=== PATIENT | female | born 1955 | race African-American/Black ===

== ENCOUNTER 2016-10-10 17:41 | Emergency (ER) | payer MEDICARE, MEDICAID ==
[~2016-10-10] VITALS: Ht 139.7 cm; Wt 69.0 kg
[~2016-10-10 17:41] MED LIST: CHOL500011; DULO30CA2; INSU100C6; LEVPEN; LISI40TA4; OMEP20TA80; PENT400T2; PROP40TA7; ROSU10TA; SITA100T6
[2016-10-10] MEDS ORDERED: KETOROLAC 60MG/2ML VIAL IM ONE (19:15)
[2016-10-10 21:00] VITALS: BP 126/69
== END 2016-10-10 22:30 | disposition home or self-care (01) ==
LOC: ER 19:00
DX: M25.571 Pain in right ankle and joints of right foot (principal); M79.671 Pain in right foot; I10 Essential (primary) hypertension; E11.9 Type 2 diabetes mellitus without complications; Z79.4 Long term (current) use of insulin
CPT/HCPCS: 73610; 73630; 96372; 99284; J1885

== ENCOUNTER 2018-10-02 09:42 | Emergency (ER) | payer MEDICARE, MEDICAID ==
[~2018-10-02] VITALS: Ht 139.7 cm; Wt 77.0 kg
[~2018-10-02 09:42] MED LIST changes: +CRES10; +OMEP20TA2; -OMEP20TA80; +PENT400T16; -PENT400T2; -ROSU10TA; +SITA100T11; -SITA100T6
[2018-10-02] MEDS: KETOROLAC 60MG/2ML VIAL IM ONE (10:13)
[2018-10-02 12:15] VITALS: BP 148/69
== END 2018-10-02 12:26 | disposition home or self-care (01) ==
LOC: ER 09:42
DX: S70.01XA Contusion of right hip, initial encounter (principal); E11.9 Type 2 diabetes mellitus without complications; I10 Essential (primary) hypertension; E03.9 Hypothyroidism, unspecified; Z98.890 Other specified postprocedural states; Z96.649 Presence of unspecified artificial hip joint; W19.XXXA Unspecified fall, initial encounter; Y93.89 Activity, other specified; Y92.89 Other specified places as the place of occurrence of the external cause; Y99.8 Other external cause status
CPT/HCPCS: 73502; 93971; 96372; 99284; J1885

== ENCOUNTER 2019-04-20 09:35 | Inpatient (IN) | payer MEDICARE, MEDICAID ==
[~2019-04-20] VITALS: Ht 154.9 cm; Wt 78.0 kg
[2019-04-20] MEDS ORDERED: SODIUM CHLORIDE 0.9% 1000ML BAG (SEPSIS BOLUS) IV ONE (10:00)
[2019-04-20] MEDS ORDERED: ACETAMINOPHEN 325MG TABLET PO STA (10:00)
[2019-04-20 10:18] LABS: BASOPHILS % 0.9 % (0.0-2.0); EOSINOPHILS % 1.7 % (0.0-5.0); HEMATOCRIT. 37.6 % (36.0-48.0); HEMOGLOBIN. 12.8 g/dL (12.0-16.0); LYMPHOCYTES % 35.6 % (20.0-50.0); MEAN CORPUSCULAR VOLUME 85.5 fL (81.0-99.0); MONOCYTES % 9.6 % (2.0-8.0); NEUTROPHILS % 52.2 % (40.0-76.0); PLATELET 335 x1000/uL (130-400); RED CELL DISTRIBUTION WIDTH 13.5 % (11.6-14.6)
[2019-04-20 10:30] LABS: CHLORIDE 102 mEq/L (98-107)
[2019-04-20 10:32] LABS: INR 0.9; PROTHROMBIN TIME 9.5 sec (9.6-11.0)
[2019-04-20] MEDS ORDERED: INSULIN REGULAR (HUMULIN R) 300UNITS/3ML IV ONE (10:45)
[2019-04-20] MEDS ORDERED: VANCOMYCIN 1 G PREMIX 200 ML IV ONE (10:45)
[2019-04-20] MEDS ORDERED: PIPERACILLIN/TAZ 3.375G PREMIX 50 ML IV ONE (10:45)
[2019-04-20] MEDS ORDERED: HYDRALAZINE 20MG/ML VIAL IV ONE (12:00)
[2019-04-20 12:20] LABS: CLARITY URINE CLEAR (CLEAR); COLOR URINE YELLOW (YELLOW); KETONES URINE NEGATIVE (NEGATIVE); LEUKOCYTE ESTERASE URINE NEGATIVE (NEGATIVE); NITRITE URINE NEGATIVE (NEGATIVE); OCCULT BLOOD URINE NEGATIVE (NEGATIVE); PROTEIN URINE NEGATIVE (NEGATIVE); SPECIFIC GRAVITY URINE 1.029 (1.005-1.030); UROBILINOGEN URINE 0.2 E.U./dL (0.2-1.0)
[2019-04-20] MEDS ORDERED: HYDROCODONE/ACETAMINOPHEN 5/325MG TABLET PO PRN (12:45)
[2019-04-20] MEDS ORDERED: IPRATROPIUM/ALBUTEROL 0.5-3(2.5)MG/3ML NEB HHN PRN (12:45)
[2019-04-20] MEDS ORDERED: DIPHENHYDRAMINE 50MG/ML VIAL IV PRN (12:45)
[2019-04-20] MEDS ORDERED: LORAZEPAM 2MG/ML CPJ IV NR (14:15)
[2019-04-20 16:40] LABS: FOLIC ACID (FOLATE) SERUM 17.3 ng/mL (>5.38)
[2019-04-20] MEDS: CLOPIDOGREL 75MG TABLET PO SCH (17:23)
[2019-04-20] MEDS: FLUCONAZOLE 100MG TABLET PO SCH (17:23)
[2019-04-20 20:05] VITALS: BP 154/78
[2019-04-20 22:00] VITALS: BP 115/73
[2019-04-20] MEDS ORDERED: DEXTROSE 50% WATER 50ML SYRINGE IV PRN (23:00)
[2019-04-20] MEDS ORDERED: INSULIN LISPRO 100 UNITS/ML SUBCUT SCH (23:00)
[2019-04-20] MEDS: ENOXAPARIN 40MG/0.4ML SYR SUBCUT SCH (23:16)
[2019-04-20] MEDS: BLOOD SUGAR DIAGNOSTIC STRIP TEST SCH (23:17)
[2019-04-20] MEDS: ACETAMINOPHEN 325MG TABLET PO PRN (23:19)
[2019-04-21] VITALS (11 sets, daily range): BP systolic 110–190; BP diastolic 20–115
[2019-04-21] MEDS ORDERED: INSULIN GLARGINE UD 100 UNITS/ML SYR SUBCUT NR (00:30)
[2019-04-21 07:04] LABS: CHLORIDE 107 mEq/L (98-107)
[2019-04-21] MEDS ORDERED: IOHEXOL-350 100 ML BOTTLE ONE (07:15)
[2019-04-21 07:36] LABS: LDL CHOLESTEROL 130 mg/dL (5-100)
[2019-04-21 07:38] LABS: HDL CHOLESTEROL 51 mg/dL (40-59)
[2019-04-21 07:47] LABS: BASOPHILS % 0.6 % (0.0-2.0); EOSINOPHILS % 2.8 % (0.0-5.0); HEMATOCRIT. 32.9 % (36.0-48.0); HEMOGLOBIN. 11.2 g/dL (12.0-16.0); LYMPHOCYTES % 43.8 % (20.0-50.0); MEAN CORPUSCULAR HEMOGLOBIN 29.1 pg (28.0-32.0); MEAN CORPUSCULAR VOLUME 85.3 fL (81.0-99.0); MEAN PLATELET VOLUME 8.2 fl (7.4-10.4); MONOCYTES % 10.1 % (2.0-8.0); NEUTROPHILS % 42.7 % (40.0-76.0); PLATELET 307 x1000/uL (130-400); RED BLOOD CELL COUNT 3.85 mill/uL (4.2-5.4); RED CELL DISTRIBUTION WIDTH 13.4 % (11.6-14.6)
[2019-04-21] MEDS: BLOOD SUGAR DIAGNOSTIC STRIP TEST SCH ×4 (07:53→20:56)
[2019-04-21] MEDS: ACETAMINOPHEN 325MG TABLET PO PRN (08:08)
[2019-04-21] MEDS: CLOPIDOGREL 75MG TABLET PO SCH (08:08)
[2019-04-21] MEDS: ASPIRIN 81MG EC TABLET PO SCH (08:09)
[2019-04-21] MEDS: FLUCONAZOLE 100MG TABLET PO SCH (08:09)
[2019-04-21] MEDS: INSULIN LISPRO 100 UNITS/ML SUBCUT SCH ×7 (08:10→20:55)
[2019-04-21 14:03] LABS: T4 FREE 1.54 ng/dL (0.76-1.46)
[2019-04-21] MEDS ORDERED: DULO30CA52 PO (16:26)
[2019-04-21] MEDS ORDERED: LISI40TA4 MT (16:28)
[2019-04-21] MEDS ORDERED: METH10TA7 PO (16:28)
[2019-04-21] MEDS ORDERED: GLIP5TAB12 MT (16:32)
[2019-04-21] MEDS ORDERED: CYCL5TAB PO (16:32)
[2019-04-21] MEDS ORDERED: ALBUL MT (16:35)
[2019-04-21] MEDS ORDERED: AMLO5TAB88 PO (16:35)
[2019-04-21 16:40] LABS: T4 FREE 1.39 ng/dL (0.76-1.46)
[2019-04-21] MEDS: CLONIDINE 0.1MG TABLET PO PRN (17:00)
[2019-04-21] MEDS: ENOXAPARIN 40MG/0.4ML SYR SUBCUT SCH (20:54)
[2019-04-21] MEDS: ATORVASTATIN CALCIUM 20MG TABLET PO SCH (20:55)
[2019-04-21] MEDS: INSULIN GLARGINE UD 100 UNITS/ML SYR SUBCUT SCH (22:22)
[2019-04-22] VITALS (13 sets, daily range): BP systolic 116–184; BP diastolic 59–116
[2019-04-22] MEDS: ONDANSETRON HCL 4MG/2ML INJ IV PRN ×2 (02:56→22:43)
[2019-04-22] MEDS: CLONIDINE 0.1MG TABLET PO PRN (03:08)
[2019-04-22] MEDS: BLOOD SUGAR DIAGNOSTIC STRIP TEST SCH ×4 (07:30→21:28)
[2019-04-22] MEDS: ACETAMINOPHEN 325MG TABLET PO PRN (08:32)
[2019-04-22] MEDS: ASPIRIN 81MG EC TABLET PO SCH (08:32)
[2019-04-22] MEDS: FLUCONAZOLE 100MG TABLET PO SCH (08:32)
[2019-04-22] MEDS: CLOPIDOGREL 75MG TABLET PO SCH (09:04)
[2019-04-22] MEDS: INSULIN LISPRO 100 UNITS/ML SUBCUT SCH ×7 (09:07→21:35)
[2019-04-22 11:00] LABS: *BENZODIAZEPINES SCREEN URINE NEGATIVE (NEGATIVE); *COCAINE SCREEN URINE NEGATIVE (NEGATIVE)
[2019-04-22 11:01] LABS: *AMPHETAMINES SCREEN URINE NEGATIVE (NEGATIVE); *BARBITURATES SCREEN URINE NEGATIVE (NEGATIVE); CANNABINOID URINE SCREEN NEGATIVE (NEGATIVE); METHADONE URINE SCREEN NEGATIVE (NEGATIVE); OPIATES URINE SCREEN NEGATIVE (NEGATIVE); PHENCYCLIDINE URINE SCREEN NEGATIVE (NEGATIVE)
[2019-04-22] MEDS: LISINOPRIL 40MG TABLET PO SCH (12:11)
[2019-04-22] MEDS ORDERED: ASPI-864 MT (13:34)
[2019-04-22] MEDS ORDERED: FLUC100T42 MT (13:34)
[2019-04-22] MEDS ORDERED: CLOP75TA4 MT (13:34)
[2019-04-22] MEDS: ENOXAPARIN 40MG/0.4ML SYR SUBCUT SCH (21:27)
[2019-04-22] MEDS: INSULIN GLARGINE UD 100 UNITS/ML SYR SUBCUT SCH (21:28)
[2019-04-22] MEDS: ATORVASTATIN CALCIUM 20MG TABLET PO SCH (21:28)
[2019-04-22] MEDS ORDERED: IOHEXOL-350 100 ML BOTTLE ONE (22:38)
[2019-04-23] VITALS: BP 155/76
[2019-04-23 06:00] VITALS: BP 131/72
[2019-04-23] MEDS: BLOOD SUGAR DIAGNOSTIC STRIP TEST SCH (07:59)
[2019-04-23 08:00] VITALS: BP 125/69
[2019-04-23] MEDS: ASPIRIN 81MG EC TABLET PO SCH (08:48)
[2019-04-23] MEDS: FLUCONAZOLE 100MG TABLET PO SCH (08:49)
[2019-04-23] MEDS: LISINOPRIL 40MG TABLET PO SCH (08:49)
[2019-04-23] MEDS: CLOPIDOGREL 75MG TABLET PO SCH (08:51)
[2019-04-23] MEDS: INSULIN LISPRO 100 UNITS/ML SUBCUT SCH ×2 (08:52→08:54)
[2019-04-23] MEDS ORDERED: AMLODIPINE 5MG TABLET PO SCH (09:00)
[2019-04-24 13:06] LABS: ANTI-THROMBIN ACTIVITY 121 % (75-135); DRVVT LA 38.9 sec (0.0-47.0); LUPUS ANTICOAG INTERPRETATION Comment: (.); PROTEIN C FUNCTIONAL 140 % (73-180); PTT-LA 32.3 sec (0.0-51.9)
[2019-04-25 10:06] LABS: ANTI-CARDIOLIPIN AB IGA < 9 APL U/mL (0-11); ANTI-CARDIOLIPIN AB IGG < 9 GPL U/mL (0-14); ANTI-CARDIOLIPIN AB IGM < 9 MPL U/mL (0-12)
== END 2019-04-23 11:05 | disposition home or self-care (01) | DRG 64 ==
LOC: ER 09:35 → 5EST 12:08 → EDBEDREQSVC 12:14 → EDBEDREQ 12:14 → EDBEDREQTM 12:14 → EDBEDREQSVC 16:47 → ENRESERV 18:39
PROVIDERS: ADMIT Internal Medicine; ATTEND Internal Medicine
DX: I63.9 Cerebral infarction, unspecified (principal); G82.50 Quadriplegia, unspecified; J98.11 Atelectasis; E87.2 Acidosis; R13.10 Dysphagia, unspecified; I16.0 Hypertensive urgency; E78.5 Hyperlipidemia, unspecified; E78.00 Pure hypercholesterolemia, unspecified; E11.42 Type 2 diabetes mellitus with diabetic polyneuropathy; E11.65 Type 2 diabetes mellitus with hyperglycemia; I10 Essential (primary) hypertension; E03.9 Hypothyroidism, unspecified; D64.9 Anemia, unspecified; R26.9 Unspecified abnormalities of gait and mobility; B37.9 Candidiasis, unspecified; F80.9 Developmental disorder of speech and language, unspecified; R29.810 Facial weakness; Z96.641 Presence of right artificial hip joint; M19.90 Unspecified osteoarthritis, unspecified site; Z79.4 Long term (current) use of insulin; Z79.899 Other long term (current) drug therapy
CPT/HCPCS: 36415; 70496; 70551; 71045; 71275; 80053; 80061; 80305; 80320; 81003; 81400; 81403; 81407; 81479; 82607; 82746; 82962; 83036; 83605; 84145; 84439; 84443; 84481; 84484; 85025; 85300; 85303; 85306; 85379; 85613; 85732; 86147; 87106; 92610; 93005; 93306; 93880; 93970; 97162; 99291; J0360; J1650; J1815; J2060; J2405; J2543; J3370; J7030; Q9967; G0480

== ENCOUNTER 2019-05-05 10:45 | Inpatient (IN) | payer MEDICARE, MEDICAID ==
[~2019-05-05] VITALS: Ht 157.5 cm; Wt 77.1 kg
[~2019-05-05 10:45] MED LIST changes: +ALBUL MT; +AMLO5TAB88 PO; +ASPI-864 MT; +CLOP75TA4 MT; +CYCL5TAB PO; +DULO30CA52 PO; +FLUC100T42 MT; +GLIP5TAB12 MT; +LISI40TA4 MT; +METH10TA7 PO
[2019-05-05 11:47] LABS: BASOPHILS % 0.7 % (0.0-2.0); HEMATOCRIT. 40.4 % (36.0-48.0); HEMOGLOBIN. 13.8 g/dL (12.0-16.0); LYMPHOCYTES % 12.9 % (20.0-50.0); MEAN CORPUSCULAR HEMOGLOBIN 29.6 pg (28.0-32.0); MEAN CORPUSCULAR VOLUME 86.4 fL (81.0-99.0); MEAN PLATELET VOLUME 8.6 fl (7.4-10.4); MONOCYTES % 1.6 % (2.0-8.0); NEUTROPHILS % 84.8 % (40.0-76.0); PLATELET 384 x1000/uL (130-400); RED BLOOD CELL COUNT 4.68 mill/uL (4.2-5.4); RED CELL DISTRIBUTION WIDTH 13.8 % (11.6-14.6)
[2019-05-05 11:53] LABS: CHLORIDE 98 mEq/L (98-107); INR 0.9; PROTHROMBIN TIME 9.9 sec (9.6-11.0)
[2019-05-05 11:58] LABS: ETHANOL BLOOD < 10 mg/dL
[2019-05-05 12:02] LABS: LDL CHOLESTEROL 175 mg/dL (5-100)
[2019-05-05 12:04] LABS: CREATINE KINASE 113 IU/L (26-192)
[2019-05-05] MEDS ORDERED: INSULIN REGULAR (HUMULIN R) 300UNITS/3ML IV ONE (12:15)
[2019-05-05] MEDS ORDERED: ACETAMINOPHEN 650MG SUPP PR STA (12:17)
[2019-05-05] MEDS ORDERED: SODIUM CHLORIDE 0.9% 1000ML BAG (SEPSIS BOLUS) IV ONE (12:30)
[2019-05-05] MEDS ORDERED: CEFTRIAXONE 1 G PREMIX 50 ML IV ONE (13:15)
[2019-05-05] MEDS ORDERED: LEVOFLOXACIN 500MG PREMIX 100 ML IV ONE (13:15)
[2019-05-05 13:56] LABS: CLARITY URINE CLEAR (CLEAR); COLOR URINE YELLOW (YELLOW); KETONES URINE 2+ (NEGATIVE); LEUKOCYTE ESTERASE URINE NEGATIVE (NEGATIVE); NITRITE URINE NEGATIVE (NEGATIVE); OCCULT BLOOD URINE TRACE (NEGATIVE); PH URINE 5.5 (4.5-8.0); PROTEIN URINE 1+ (NEGATIVE); SPECIFIC GRAVITY URINE 1.035 (1.005-1.030); UROBILINOGEN URINE 0.2 E.U./dL (0.2-1.0)
[2019-05-05] MEDS ORDERED: DEXTROSE 50% WATER 50ML SYRINGE IV PRN (14:00)
[2019-05-05] MEDS ORDERED: ACETAMINOPHEN 325MG TABLET PO PRN (14:00)
[2019-05-05] MEDS ORDERED: ONDANSETRON HCL 4MG/2ML INJ IV PRN (14:00)
[2019-05-05 14:29] LABS: *BARBITURATES SCREEN URINE NEGATIVE (NEGATIVE); *BENZODIAZEPINES SCREEN URINE NEGATIVE (NEGATIVE)
[2019-05-05 14:33] LABS: *AMPHETAMINES SCREEN URINE NEGATIVE (NEGATIVE); *COCAINE SCREEN URINE NEGATIVE (NEGATIVE); CANNABINOID URINE SCREEN NEGATIVE (NEGATIVE); METHADONE URINE SCREEN NEGATIVE (NEGATIVE); PHENCYCLIDINE URINE SCREEN NEGATIVE (NEGATIVE)
[2019-05-05 14:47] LABS: OPIATES URINE SCREEN NEGATIVE (NEGATIVE)
[2019-05-05 16:00] VITALS: BP 108/93
[2019-05-05] MEDS: ACETAMINOPHEN 650MG SUPP PR NR ×2 (16:45→17:40)
[2019-05-05] MEDS: SODIUM CHLORIDE 0.9% 1,000 ML IV SCH (17:39)
[2019-05-05] MEDS: ENOXAPARIN 40MG/0.4ML SYR SUBCUT SCH (17:41)
[2019-05-05] MEDS: CEFEPIME 1,000 MG in DEXTROSE 5% WATER 50 ML IV SCH (17:45)
[2019-05-05 18:00] VITALS: BP 125/104
[2019-05-05] MEDS ORDERED: ASPIRIN 300MG SUPP PR NR (18:00)
[2019-05-05] MEDS: BLOOD SUGAR DIAGNOSTIC STRIP TEST SCH ×2 (18:20→21:53)
[2019-05-05] MEDS: INSULIN LISPRO 100 UNITS/ML SUBCUT SCH ×2 (18:29→21:54)
[2019-05-05] MEDS: METRONIDAZOLE 500 MG PREMIX 100 ML IV SCH (19:09)
[2019-05-05] MEDS: ATORVASTATIN CALCIUM 40MG TABLET PO SCH (21:00)
[2019-05-05] MEDS: INSULIN GLARGINE UD 100 UNITS/ML SYR SUBCUT SCH (21:55)
[2019-05-05 22:00] VITALS: BP 137/73
[2019-05-06] VITALS (10 sets, daily range): BP systolic 108–155; BP diastolic 64–93
[2019-05-06] MEDS: METRONIDAZOLE 500 MG PREMIX 100 ML IV SCH ×3 (02:19→20:26)
[2019-05-06] MEDS: CEFEPIME 1,000 MG in DEXTROSE 5% WATER 50 ML IV SCH ×2 (05:24→21:48)
[2019-05-06 07:20] LABS: BASOPHILS % 1.1 % (0.0-2.0); HEMATOCRIT. 33.6 % (36.0-48.0); HEMOGLOBIN. 11.5 g/dL (12.0-16.0); LYMPHOCYTES % 28.9 % (20.0-50.0); MEAN CORPUSCULAR HEMOGLOBIN 29.5 pg (28.0-32.0); MEAN CORPUSCULAR VOLUME 85.9 fL (81.0-99.0); MEAN PLATELET VOLUME 8.7 fl (7.4-10.4); MONOCYTES % 13.9 % (2.0-8.0); NEUTROPHILS % 56.1 % (40.0-76.0); PLATELET 281 x1000/uL (130-400); RED BLOOD CELL COUNT 3.91 mill/uL (4.2-5.4); RED CELL DISTRIBUTION WIDTH 14.1 % (11.6-14.6)
[2019-05-06] MEDS: BLOOD SUGAR DIAGNOSTIC STRIP TEST SCH ×4 (07:30→21:00)
[2019-05-06 07:51] LABS: CHLORIDE 109 mEq/L (98-107)
[2019-05-06] MEDS ORDERED: LORAZEPAM 2MG/ML CPJ IV PRN (08:00)
[2019-05-06] MEDS ORDERED: HALOPERIDOL LACTATE 5MG/ML VIAL IM PRN (08:00)
[2019-05-06] MEDS: CLOPIDOGREL 75MG TABLET PO SCH ×2 (09:00→09:39)
[2019-05-06] MEDS: INSULIN LISPRO 100 UNITS/ML SUBCUT SCH ×4 (09:37→21:54)
[2019-05-06 09:59] LABS: HDL CHOLESTEROL 59 mg/dL (40-59); LDL CHOLESTEROL 128 mg/dL (5-100)
[2019-05-06 10:00] LABS: T4 FREE 1.97 ng/dL (0.76-1.46)
[2019-05-06 10:14] LABS: FOLIC ACID (FOLATE) SERUM >20 ng/mL ng/mL (>5.38)
[2019-05-06 10:24] LABS: VITAMIN B12 SERUM >2000 pg/mL pg/mL (211-911)
[2019-05-06] MEDS: INSULIN GLARGINE UD 100 UNITS/ML SYR SUBCUT SCH ×2 (10:57→21:54)
[2019-05-06] MEDS ORDERED: LACTATED RINGERS 1,000 ML IV ONE (12:00)
[2019-05-06] MEDS: OMEPRAZOLE 20MG CAPSULE EXTENDED RELEASE PO SCH (12:33)
[2019-05-06] MEDS: METHIMAZOLE 5MG TABLET PO SCH ×2 (12:33→17:12)
[2019-05-06] MEDS: PROPRANOLOL HCL 10MG TABLET PO SCH ×2 (13:48→21:52)
[2019-05-06] MEDS: ENOXAPARIN 40MG/0.4ML SYR SUBCUT SCH (17:09)
[2019-05-06] MEDS: SODIUM CHLORIDE 0.9% 1,000 ML IV SCH (17:10)
[2019-05-06 18:12] LABS: HEPATITIS B SURFACE ANTIGEN NEGATIVE
[2019-05-06] MEDS: ATORVASTATIN CALCIUM 40MG TABLET PO SCH (21:52)
[2019-05-07] VITALS (7 sets, daily range): BP systolic 122–162; BP diastolic 49–86
[2019-05-07] MEDS: METRONIDAZOLE 500 MG PREMIX 100 ML IV SCH ×3 (03:12→20:22)
[2019-05-07] MEDS: SODIUM CHLORIDE 0.9% 1,000 ML IV SCH ×2 (06:00→20:23)
[2019-05-07] MEDS: PROPRANOLOL HCL 10MG TABLET PO SCH ×3 (06:47→18:33)
[2019-05-07 07:13] LABS: BASOPHILS % 0.5 % (0.0-2.0); EOSINOPHILS % 3.1 % (0.0-5.0); HEMATOCRIT. 31.5 % (36.0-48.0); HEMOGLOBIN. 10.8 g/dL (12.0-16.0); LYMPHOCYTES % 38.1 % (20.0-50.0); MEAN CORPUSCULAR HEMOGLOBIN 29.2 pg (28.0-32.0); MEAN CORPUSCULAR VOLUME 85.5 fL (81.0-99.0); MEAN PLATELET VOLUME 8.5 fl (7.4-10.4); MONOCYTES % 12.5 % (2.0-8.0); NEUTROPHILS % 45.8 % (40.0-76.0); PLATELET 236 x1000/uL (130-400); RED BLOOD CELL COUNT 3.69 mill/uL (4.2-5.4)
[2019-05-07] MEDS: BLOOD SUGAR DIAGNOSTIC STRIP TEST SCH ×4 (07:30→20:47)
[2019-05-07 07:36] LABS: CHLORIDE 108 mEq/L (98-107)
[2019-05-07] MEDS: CEFEPIME 1,000 MG in DEXTROSE 5% WATER 50 ML IV SCH ×2 (09:31→20:22)
[2019-05-07] MEDS: CLOPIDOGREL 75MG TABLET PO SCH (09:32)
[2019-05-07] MEDS: METHIMAZOLE 5MG TABLET PO SCH ×2 (09:32→18:27)
[2019-05-07] MEDS: OMEPRAZOLE 20MG CAPSULE EXTENDED RELEASE PO SCH (09:32)
[2019-05-07] MEDS: INSULIN GLARGINE UD 100 UNITS/ML SYR SUBCUT SCH ×2 (09:34→22:18)
[2019-05-07] MEDS: INSULIN LISPRO 100 UNITS/ML SUBCUT SCH ×4 (09:35→22:18)
[2019-05-07] MEDS: LINAGLIPTIN 5MG TABLET PO SCH (18:27)
[2019-05-07] MEDS: ENOXAPARIN 40MG/0.4ML SYR SUBCUT SCH (18:27)
[2019-05-07] MEDS: ATORVASTATIN CALCIUM 40MG TABLET PO SCH (20:34)
[2019-05-08] VITALS (10 sets, daily range): BP systolic 142–169; BP diastolic 81–92
[2019-05-08] MEDS: PROPRANOLOL HCL 10MG TABLET PO SCH ×4 (01:28→17:50)
[2019-05-08] MEDS: METRONIDAZOLE 500 MG PREMIX 100 ML IV SCH ×2 (03:30→10:03)
[2019-05-08] MEDS: OMEPRAZOLE 20MG CAPSULE EXTENDED RELEASE PO SCH (05:51)
[2019-05-08] MEDS: INSULIN LISPRO 100 UNITS/ML SUBCUT SCH ×3 (08:00→17:37)
[2019-05-08] MEDS: BLOOD SUGAR DIAGNOSTIC STRIP TEST SCH ×3 (08:22→17:36)
[2019-05-08] MEDS: SODIUM CHLORIDE 0.9% 1,000 ML IV SCH (08:40)
[2019-05-08] MEDS: LINAGLIPTIN 5MG TABLET PO SCH (10:03)
[2019-05-08] MEDS: CEFEPIME 1,000 MG in DEXTROSE 5% WATER 50 ML IV SCH (10:03)
[2019-05-08] MEDS: CLOPIDOGREL 75MG TABLET PO SCH (10:04)
[2019-05-08] MEDS: METHIMAZOLE 5MG TABLET PO SCH ×2 (10:04→17:50)
[2019-05-08] MEDS: INSULIN GLARGINE UD 100 UNITS/ML SYR SUBCUT SCH (10:06)
[2019-05-08] MEDS: ENOXAPARIN 40MG/0.4ML SYR SUBCUT SCH (17:49)
[2019-05-08] MEDS ORDERED: METRONIDAZOLE 500MG TABLET PO SCH (18:00)
== END 2019-05-08 19:17 | disposition short-term general hospital (02) | DRG 871 ==
LOC: ER 10:45 → 5EST 12:44 → EDBEDREQ 12:47 → ENRESERV 14:08 → 5EST 17:25
PROVIDERS: ADMIT Internal Medicine; ATTEND Internal Medicine
PROC: 4A00X4Z Measurement of Central Nervous Electrical Activity, External Approach (ICD-10-PCS; principal; 2019-05-06)
DX: A41.9 Sepsis, unspecified organism (principal); G92 Toxic encephalopathy; I63.9 Cerebral infarction, unspecified; E05.21 Thyrotoxicosis with toxic multinodular goiter with thyrotoxic crisis or storm; E87.1 Hypo-osmolality and hyponatremia; E11.65 Type 2 diabetes mellitus with hyperglycemia; I10 Essential (primary) hypertension; E03.9 Hypothyroidism, unspecified; E78.00 Pure hypercholesterolemia, unspecified; M41.9 Scoliosis, unspecified; W18.39XA Other fall on same level, initial encounter; E05.20 Thyrotoxicosis with toxic multinodular goiter without thyrotoxic crisis or storm; E66.01 Morbid (severe) obesity due to excess calories; E78.5 Hyperlipidemia, unspecified; S00.12XA Contusion of left eyelid and periocular area, initial encounter; Z79.4 Long term (current) use of insulin; Z79.82 Long term (current) use of aspirin; Z79.899 Other long term (current) drug therapy; Y93.89 Activity, other specified; Y92.89 Other specified places as the place of occurrence of the external cause; Y99.8 Other external cause status; Z68.31 Body mass index [BMI] 31.0-31.9, adult
CPT/HCPCS: 36415; 70486; 70551; 71045; 76536; 80048; 80053; 80061; 80305; 80320; 81003; 82010; 82465; 82550; 82607; 82746; 82962; 83036; 83520; 83605; 83721; 83880; 84145; 84439; 84443; 84481; 84484; 85025; 85379; 86376; 87804; 92610; 93005; 97162; 97166; 99291; J0692; J0696; J1650; J1815; J1956; J3490; J7030; J7060; G0480

== ENCOUNTER 2019-11-20 11:47 | Inpatient (IN) | payer OTHER, MEDICAID ==
[~2019-11-20] VITALS: Ht 139.7 cm; Wt 84.4 kg
[2019-11-20 12:08] LABS: BASOPHILS % 1.2 % (0.0-2.0); EOSINOPHILS % 3.4 % (0.0-5.0); HEMATOCRIT. 37.2 % (36.0-48.0); HEMOGLOBIN. 12.3 g/dL (12.0-16.0); LYMPHOCYTES % 45.3 % (20.0-50.0); MEAN CORPUSCULAR HEMOGLOBIN 28.4 pg (28.0-32.0); MEAN CORPUSCULAR VOLUME 85.8 fL (81.0-99.0); MEAN PLATELET VOLUME 8.2 fl (7.4-10.4); MONOCYTES % 8.2 % (2.0-8.0); NEUTROPHILS % 41.9 % (40.0-76.0); PLATELET 319 x1000/uL (130-400); RED BLOOD CELL COUNT 4.33 mill/uL (4.2-5.4)
[2019-11-20 12:15] LABS: CHLORIDE 101 mEq/L (98-107)
[2019-11-20 12:18] LABS: ETHANOL BLOOD < 10 mg/dL
[2019-11-20] MEDS ORDERED: SODIUM CHLORIDE 0.9% 1,000 ML IV ONE (12:37)
[2019-11-20] MEDS ORDERED: INSULIN REGULAR (HUMULIN R) 300UNITS/3ML IV ONE (12:45)
[2019-11-20 13:07] LABS: CLARITY URINE CLEAR (CLEAR); COLOR URINE YELLOW (YELLOW); KETONES URINE NEGATIVE (NEGATIVE); LEUKOCYTE ESTERASE URINE NEGATIVE (NEGATIVE); NITRITE URINE NEGATIVE (NEGATIVE); OCCULT BLOOD URINE NEGATIVE (NEGATIVE); PH URINE 6.5 (4.5-8.0); PROTEIN URINE NEGATIVE (NEGATIVE); SPECIFIC GRAVITY URINE 1.029 (1.005-1.030); UROBILINOGEN URINE 0.2 E.U./dL (0.2-1.0)
[2019-11-20 13:20] LABS: *AMPHETAMINES SCREEN URINE NEGATIVE (NEGATIVE); *BARBITURATES SCREEN URINE NEGATIVE (NEGATIVE); *BENZODIAZEPINES SCREEN URINE NEGATIVE (NEGATIVE); *COCAINE SCREEN URINE NEGATIVE (NEGATIVE); CANNABINOID URINE SCREEN NEGATIVE (NEGATIVE); METHADONE URINE SCREEN NEGATIVE (NEGATIVE); OPIATES URINE SCREEN NEGATIVE (NEGATIVE); PHENCYCLIDINE URINE SCREEN NEGATIVE (NEGATIVE)
[2019-11-20] MEDS: SODIUM CHLORIDE 0.9% 1,000 ML IV SCH (14:09)
[2019-11-20] MEDS ORDERED: DIPHENHYDRAMINE 50MG/ML VIAL IV PRN (14:15)
[2019-11-20] MEDS ORDERED: IPRATROPIUM/ALBUTEROL 0.5-3(2.5)MG/3ML NEB HHN PRN (14:15)
[2019-11-20] MEDS ORDERED: CLONIDINE 0.1MG TABLET PO PRN (14:15)
[2019-11-20] MEDS ORDERED: ONDANSETRON HCL 4MG/2ML INJ IV PRN (14:15)
[2019-11-20 14:29] LABS: PHOSPHORUS 3.9 mg/dL (2.5-4.9)
[2019-11-20] MEDS: ENOXAPARIN 40MG/0.4ML SYR SUBCUT SCH (15:00)
[2019-11-20 17:41] VITALS: BP 126/64
[2019-11-20 17:58] VITALS: BP 143/82
[2019-11-20] MEDS: GLIPIZIDE 5MG TABLET PO SCH (18:02)
[2019-11-20] MEDS: METHIMAZOLE 5MG TABLET PO SCH (18:02)
[2019-11-20] MEDS: DULOXETINE HCL 30MG DR CAPSULE PO SCH (18:03)
[2019-11-20] MEDS ORDERED: DEXTROSE 50% WATER 50ML SYRINGE IV PRN (18:15)
[2019-11-20 20:00] VITALS: BP 111/67
[2019-11-20] MEDS: AMLODIPINE 5MG TABLET PO SCH (21:24)
[2019-11-20] MEDS: ATORVASTATIN CALCIUM 10MG TABLET PO SCH (21:24)
[2019-11-20] MEDS: INSULIN LISPRO 100 UNITS/ML SUBCUT SCH (21:25)
[2019-11-20] MEDS: BLOOD SUGAR DIAGNOSTIC STRIP TEST SCH (21:25)
[2019-11-20] MEDS: ACETAMINOPHEN 325MG TABLET PO PRN (21:39)
[2019-11-20 22:00] VITALS: BP 139/78
[2019-11-21] VITALS (11 sets, daily range): BP systolic 123–173; BP diastolic 60–86
[2019-11-21] MEDS: SODIUM CHLORIDE 0.9% 1,000 ML IV SCH ×2 (03:52→16:42)
[2019-11-21] MEDS: OMEPRAZOLE 20MG CAPSULE EXTENDED RELEASE PO SCH (06:27)
[2019-11-21] MEDS: BLOOD SUGAR DIAGNOSTIC STRIP TEST SCH ×4 (06:27→20:24)
[2019-11-21 06:47] LABS: BASOPHILS % 0.4 % (0.0-2.0); EOSINOPHILS % 4.9 % (0.0-5.0); HEMATOCRIT. 35.2 % (36.0-48.0); HEMOGLOBIN. 11.7 g/dL (12.0-16.0); LYMPHOCYTES % 51.2 % (20.0-50.0); MEAN CORPUSCULAR HEMOGLOBIN 28.4 pg (28.0-32.0); MEAN CORPUSCULAR VOLUME 85.6 fL (81.0-99.0); MEAN PLATELET VOLUME 8.1 fl (7.4-10.4); MONOCYTES % 11.5 % (2.0-8.0); PLATELET 299 x1000/uL (130-400); RED BLOOD CELL COUNT 4.11 mill/uL (4.2-5.4); RED CELL DISTRIBUTION WIDTH 14.1 % (11.6-14.6)
[2019-11-21 06:51] LABS: CHLORIDE 102 mEq/L (98-107)
[2019-11-21 07:00] LABS: LDL CHOLESTEROL 151 mg/dL (5-100)
[2019-11-21 07:02] LABS: HDL CHOLESTEROL 54 mg/dL (40-59)
[2019-11-21] MEDS: INSULIN LISPRO 100 UNITS/ML SUBCUT SCH ×4 (08:07→20:34)
[2019-11-21] MEDS: GLIPIZIDE 5MG TABLET PO SCH ×2 (08:08→16:40)
[2019-11-21] MEDS: ASPIRIN 81MG EC TABLET PO SCH (08:09)
[2019-11-21] MEDS: DULOXETINE HCL 30MG DR CAPSULE PO SCH ×2 (08:09→16:40)
[2019-11-21] MEDS: LISINOPRIL 40MG TABLET PO SCH (08:10)
[2019-11-21] MEDS: AMLODIPINE 5MG TABLET PO SCH ×2 (08:10→20:32)
[2019-11-21] MEDS: CLOPIDOGREL 75MG TABLET PO SCH (08:10)
[2019-11-21] MEDS: METHIMAZOLE 5MG TABLET PO SCH ×2 (08:11→16:40)
[2019-11-21 09:16] LABS: T4 FREE 1.94 ng/dL (0.76-1.46)
[2019-11-21] MEDS: ENOXAPARIN 40MG/0.4ML SYR SUBCUT SCH (15:10)
[2019-11-21] MEDS: ATORVASTATIN CALCIUM 10MG TABLET PO SCH (20:36)
[2019-11-22] VITALS (10 sets, daily range): BP systolic 128–158; BP diastolic 73–93
[2019-11-22] MEDS: SODIUM CHLORIDE 0.9% 1,000 ML IV SCH (06:14)
[2019-11-22] MEDS: BLOOD SUGAR DIAGNOSTIC STRIP TEST SCH ×3 (06:15→16:50)
[2019-11-22] MEDS: OMEPRAZOLE 20MG CAPSULE EXTENDED RELEASE PO SCH (06:15)
[2019-11-22] MEDS: ACETAMINOPHEN 325MG TABLET PO PRN (06:15)
[2019-11-22] MEDS: GLIPIZIDE 5MG TABLET PO SCH ×2 (07:52→17:57)
[2019-11-22] MEDS: INSULIN LISPRO 100 UNITS/ML SUBCUT SCH ×3 (07:52→17:57)
[2019-11-22] MEDS: DULOXETINE HCL 30MG DR CAPSULE PO SCH ×2 (08:31→17:57)
[2019-11-22] MEDS: AMLODIPINE 5MG TABLET PO SCH (08:31)
[2019-11-22] MEDS: LISINOPRIL 40MG TABLET PO SCH (08:31)
[2019-11-22] MEDS: CLOPIDOGREL 75MG TABLET PO SCH (08:31)
[2019-11-22] MEDS: ASPIRIN 81MG EC TABLET PO SCH (08:31)
[2019-11-22] MEDS: METHIMAZOLE 5MG TABLET PO SCH ×2 (08:32→17:57)
[2019-11-22] MEDS: ENOXAPARIN 40MG/0.4ML SYR SUBCUT SCH (15:32)
[2019-11-23] MEDS ORDERED: FAMOTIDINE 20MG TABLET PO SCH (09:00)
== END 2019-11-22 19:52 | disposition short-term general hospital (02) | DRG 65 ==
LOC: ER 11:47 → 3WST 13:57 → EDBEDREQTM 14:00 → EDBEDREQ 14:00 → ENRESERV 17:00
PROVIDERS: ADMIT Internal Medicine; ATTEND Internal Medicine
DX: I63.81 Other cerebral infarction due to occlusion or stenosis of small artery (principal); I69.354 Hemiplegia and hemiparesis following cerebral infarction affecting left non-dominant side; Z96.649 Presence of unspecified artificial hip joint; E11.65 Type 2 diabetes mellitus with hyperglycemia; I10 Essential (primary) hypertension; I25.10 Atherosclerotic heart disease of native coronary artery without angina pectoris; E04.2 Nontoxic multinodular goiter; E05.90 Thyrotoxicosis, unspecified without thyrotoxic crisis or storm; Z79.82 Long term (current) use of aspirin; Z79.4 Long term (current) use of insulin; Z79.899 Other long term (current) drug therapy; H54.40 Blindness, one eye, unspecified eye; G83.11 Monoplegia of lower limb affecting right dominant side
CPT/HCPCS: 36415; 70551; 71045; 80053; 80061; 80305; 80320; 81003; 82962; 83036; 83735; 84100; 84439; 84443; 84481; 85025; 93005; 93970; 97162; 99285; J1650; J1815; J7030; G0480

== ENCOUNTER 2020-01-31 13:07 | Emergency (ER) | payer OTHER, MEDICAID ==
[~2020-01-31] VITALS: Ht 139.7 cm; Wt 83.4 kg
[2020-01-31] MEDS ORDERED: ACETAMINOPHEN 325MG TABLET PO ONE (15:15)
[2020-01-31 15:44] LABS: BG BASE EXCESS 0.5 mmol/L (-2.0-2.0); BG DEOXYHEMOGLOBIN 5.8 % (0.0-5.0); BG FRACTION INSPIRED OXYGEN 21; BG METHEMOGLOBIN 0.6 % (0.0-1.5); BG OXYGEN SATURATION 94.1 % (92.0-98.5); BG OXYHEMOGLOBIN 92.6 % (94.0-97.0); BG PCO2 34.9 mmHg (35.0-45.0); BG PH 7.455 (7.350-7.450); BG PO2 74.3 mmHg (75.0-100.0); BG SAMPLE SITE RIGHT RADIAL; BG TOTAL HEMOGLOBIN 12.1 g/dL (12.0-18.0); BG VENT MODE ROOM AIR
[2020-01-31 17:29] LABS: BASOPHILS % 0.8 % (0.0-2.0); EOSINOPHILS % 2.8 % (0.0-5.0); HEMATOCRIT. 36.6 % (36.0-48.0); HEMOGLOBIN. 12.2 g/dL (12.0-16.0); LYMPHOCYTES % 43.9 % (20.0-50.0); MEAN CORPUSCULAR HEMOGLOBIN 28.1 pg (28.0-32.0); MEAN CORPUSCULAR VOLUME 84.1 fL (81.0-99.0); MEAN PLATELET VOLUME 7.2 fl (7.4-10.4); MONOCYTES % 8.5 % (2.0-8.0); PLATELET 329 x1000/uL (130-400); RED BLOOD CELL COUNT 4.35 mill/uL (4.2-5.4); RED CELL DISTRIBUTION WIDTH 14.1 % (11.6-14.6)
[2020-01-31 17:36] LABS: CHLORIDE 107 mEq/L (98-107)
[2020-01-31 17:37] LABS: PROTHROMBIN TIME 10.1 sec (9.6-11.0)
[2020-01-31] MEDS: ALBUTEROL (0.083%) 2.5MG/3ML NEB HHN SCH ×2 (18:30→18:35)
[2020-01-31] MEDS ORDERED: ALBUTEROL (0.083%) 2.5MG/3ML NEB ONE (18:39)
[2020-01-31 19:58] LABS: CLARITY URINE CLOUDY (CLEAR); COLOR URINE YELLOW (YELLOW); KETONES URINE NEGATIVE (NEGATIVE); LEUKOCYTE ESTERASE URINE NEGATIVE (NEGATIVE); NITRITE URINE NEGATIVE (NEGATIVE); OCCULT BLOOD URINE NEGATIVE (NEGATIVE); PH URINE 6.5 (4.5-8.0); PROTEIN URINE 2+ (NEGATIVE); SPECIFIC GRAVITY URINE 1.027 (1.005-1.030)
[2020-01-31] MEDS ORDERED: ASPIRIN 81MG TABLET PO ONE (22:15)
[2020-02-01 03:43] VITALS: BP 170/85
== END 2020-02-01 04:04 | disposition home or self-care (01) ==
LOC: ER 13:07 → EDBEDREQTM 17:47 → EDBEDREQSVC 17:47 → EDBEDREQ 17:47 → ER 02-01 04:04 → CANBEDREQ 02-01 15:40
DX: I20.8 Other forms of angina pectoris (principal); J45.901 Unspecified asthma with (acute) exacerbation; I10 Essential (primary) hypertension; E11.9 Type 2 diabetes mellitus without complications; Z86.73 Personal history of transient ischemic attack (TIA), and cerebral infarction without residual deficits; Z87.891 Personal history of nicotine dependence; Z79.899 Other long term (current) drug therapy; Z20.828 Contact with and (suspected) exposure to other viral communicable diseases
CPT/HCPCS: 36415; 36600; 71045; 80053; 81003; 82375; 82805; 82962; 83605; 83880; 84145; 84484; 85025; 85610; 87040; 87086; 87635; 93005; 94640; 99285; C9803

== ENCOUNTER 2021-09-04 11:06 | Emergency (ER) | payer OTHER, MEDICAID ==
[~2021-09-04] VITALS: Ht 160 cm; Wt 65.0 kg
[~2021-09-04 11:06] MED LIST changes: +CLOP-31 MT; -CLOP75TA4 MT; +LISI40TA13; +LISI40TA13 MT; -LISI40TA4; -LISI40TA4 MT; +METH-372 PO; -METH10TA7 PO; -OMEP20TA2; +OMEP20TA23
[2021-09-04] MEDS ORDERED: SODIUM CHLORIDE 0.9% 500 ML IV ONE (12:00)
[2021-09-04 14:47] LABS: BASOPHILS % 0.5 % (0.0-2.0); EOSINOPHILS % 2.8 % (0.0-5.0); HEMATOCRIT. 37.1 % (36.0-48.0); HEMOGLOBIN. 12.5 g/dL (12.0-16.0); LYMPHOCYTES % 52.6 % (20.0-50.0); MEAN CORPUSCULAR HEMOGLOBIN 28.1 pg (28.0-32.0); MEAN CORPUSCULAR VOLUME 83.5 fL (81.0-99.0); MEAN PLATELET VOLUME 7.7 fl (7.4-10.4); MONOCYTES % 9.4 % (2.0-8.0); NEUTROPHILS % 34.7 % (40.0-76.0); PLATELET 366 x1000/uL (130-400); RED BLOOD CELL COUNT 4.44 mill/uL (4.2-5.4); RED CELL DISTRIBUTION WIDTH 13.4 % (11.6-14.6)
[2021-09-04 14:56] LABS: CHLORIDE 101 mEq/L (98-107)
[2021-09-04 16:43] LABS: CLARITY URINE CLEAR (CLEAR); COLOR URINE YELLOW (YELLOW); KETONES URINE TRACE (NEGATIVE); LEUKOCYTE ESTERASE URINE NEGATIVE (NEGATIVE); NITRITE URINE NEGATIVE (NEGATIVE); OCCULT BLOOD URINE NEGATIVE (NEGATIVE); PH URINE 5.5 (4.5-8.0); PROTEIN URINE 2+ (NEGATIVE); SPECIFIC GRAVITY URINE 1.027 (1.005-1.030); UROBILINOGEN URINE 0.2 E.U./dL (0.2-1.0)
[2021-09-04] MEDS ORDERED: BISA10SU62 RC (16:50)
[2021-09-04] MEDS ORDERED: POLY119P2 MT (16:50)
[2021-09-04 18:30] VITALS: BP 154/77
== END 2021-09-04 18:56 | disposition home or self-care (01) ==
LOC: ER 11:06
DX: K59.00 Constipation, unspecified (principal); E86.0 Dehydration; I10 Essential (primary) hypertension; E11.9 Type 2 diabetes mellitus without complications; J45.909 Unspecified asthma, uncomplicated; Z79.899 Other long term (current) drug therapy; Z86.73 Personal history of transient ischemic attack (TIA), and cerebral infarction without residual deficits; Z86.39 Personal history of other endocrine, nutritional and metabolic disease
CPT/HCPCS: 36415; 74176; 80053; 81003; 83690; 85025; 96360; 96361; 99284; J7040

== ENCOUNTER 2021-09-18 12:59 | Emergency (ER) | payer OTHER ==
[~2021-09-18] VITALS: Ht 139.7 cm; Wt 63.0 kg
[~2021-09-18 12:59] MED LIST changes: +BISA10SU62 RC; +POLY119P2 MT
[2021-09-18] MEDS ORDERED: LIDOCAINE 5% PATCH TOP ONE (13:45)
[2021-09-18] MEDS ORDERED: ACETAMINOPHEN 325MG TABLET PO ONE (13:45)
[2021-09-18 14:37] LABS: CLARITY URINE CLEAR (CLEAR); COLOR URINE YELLOW (YELLOW); KETONES URINE TRACE (NEGATIVE); LEUKOCYTE ESTERASE URINE NEGATIVE (NEGATIVE); NITRITE URINE NEGATIVE (NEGATIVE); OCCULT BLOOD URINE NEGATIVE (NEGATIVE); PH URINE 5.5 (4.5-8.0); PROTEIN URINE 1+ (NEGATIVE); SPECIFIC GRAVITY URINE 1.033 (1.005-1.030)
[2021-09-18 15:10] LABS: BASOPHILS % 0.5 % (0.0-2.0); EOSINOPHILS % 3.3 % (0.0-5.0); HEMATOCRIT. 40.7 % (36.0-48.0); HEMOGLOBIN. 13.3 g/dL (12.0-16.0); LYMPHOCYTES % 49.3 % (20.0-50.0); MEAN CORPUSCULAR VOLUME 85.5 fL (81.0-99.0); MEAN PLATELET VOLUME 8.1 fl (7.4-10.4); MONOCYTES % 12.6 % (2.0-8.0); NEUTROPHILS % 34.3 % (40.0-76.0); PLATELET 259 x1000/uL (130-400); RED BLOOD CELL COUNT 4.76 mill/uL (4.2-5.4); RED CELL DISTRIBUTION WIDTH 14.1 % (11.6-14.6)
[2021-09-18 15:17] LABS: CHLORIDE 104 mEq/L (98-107)
[2021-09-18] MEDS ORDERED: LIDO700A15 TP (16:53)
[2021-09-18] MEDS ORDERED: T3 PO (16:53)
[2021-09-19 01:04] VITALS: BP 160/73
== END 2021-09-19 01:10 | disposition home or self-care (01) ==
LOC: ER 12:59
DX: M54.50 Low back pain, unspecified (principal); G89.29 Other chronic pain; M47.896 Other spondylosis, lumbar region; I10 Essential (primary) hypertension; E03.9 Hypothyroidism, unspecified; E11.9 Type 2 diabetes mellitus without complications; J45.909 Unspecified asthma, uncomplicated; I69.354 Hemiplegia and hemiparesis following cerebral infarction affecting left non-dominant side; Z87.81 Personal history of (healed) traumatic fracture; Z96.649 Presence of unspecified artificial hip joint; Z79.4 Long term (current) use of insulin
CPT/HCPCS: 36415; 74176; 80053; 81003; 83605; 85025; 99284

== ENCOUNTER 2022-02-06 17:38 | Emergency (ER) | payer OTHER ==
[~2022-02-06] VITALS: Ht 170.2 cm; Wt 80.0 kg
[~2022-02-06 17:38] MED LIST changes: +LIDO700A15 TP; +T3 PO
[2022-02-06 19:30] LABS: BASOPHILS % 0.6 % (0.0-2.0); EOSINOPHILS % 1.1 % (0.0-5.0); HEMATOCRIT. 37.7 % (36.0-48.0); LYMPHOCYTES % 37.8 % (20.0-50.0); MEAN CORPUSCULAR HEMOGLOBIN 29.5 pg (28.0-32.0); MEAN CORPUSCULAR VOLUME 85.7 fL (81.0-99.0); MEAN PLATELET VOLUME 7.4 fl (7.4-10.4); MONOCYTES % 6.7 % (2.0-8.0); NEUTROPHILS % 53.8 % (40.0-76.0); PLATELET 343 x1000/uL (130-400); RED CELL DISTRIBUTION WIDTH 13.6 % (11.6-14.6)
[2022-02-06 22:26] LABS: CHLORIDE 105 mEq/L (98-107)
[2022-02-06] MEDS ORDERED: KCL 10MEQ/50ML PREMIX 50 ML IV ONE (22:45)
[2022-02-06] MEDS ORDERED: POTASSIUM CHLORIDE 20MEQ TABLET SR PO ONE (22:45)
[2022-02-07 06:00] VITALS: BP 140/74
== END 2022-02-07 10:07 | disposition home or self-care (01) ==
LOC: ER 17:38
DX: R00.2 Palpitations (principal); E87.6 Hypokalemia; I10 Essential (primary) hypertension; E11.9 Type 2 diabetes mellitus without complications; J45.909 Unspecified asthma, uncomplicated; E05.90 Thyrotoxicosis, unspecified without thyrotoxic crisis or storm; Z96.649 Presence of unspecified artificial hip joint; Z79.4 Long term (current) use of insulin
CPT/HCPCS: 36415; 71045; 80048; 82962; 83880; 84484; 85025; 93005; 99285; Z7610; J3480